=== PATIENT | male | born 1955 | race Caucasian/White ===

== ENCOUNTER 2016-06-23 20:55 | Inpatient (IN) | payer OTHER ==
[~2016-06-23] VITALS: Ht 188 cm; Wt 118.8 kg
[~2016-06-23 20:55] MED LIST: [UNRECOGNIZED DRUG - OTHER]
[2016-06-23 22:21] LABS: ADD SCAN DIFF NO
[2016-06-23 22:25] LABS: BASOPHIL # 0.1 10^3/ul (0.0-0.1); BASOPHILS % 0.4 % (0.0-2.0); EOSINOPHILS # 0.1 10^3/ul (0.0-0.5); EOSINOPHILS % 0.7 % (0.0-7.0); HEMATOCRIT 36.5 % (42.0-52.0); HEMOGLOBIN 11.4 g/dl (14.0-18.0); LYMPHOCYTES # 1.4 10^3/ul (0.8-2.9); LYMPHOCYTES % 10.1 % (15.0-51.0); MEAN CORPUSCULAR HEMOGLOBIN 26.8 pg (29.0-33.0); MEAN CORPUSCULAR HGB CONC 31.2 g/dl (32.0-37.0); MEAN CORPUSCULAR VOLUME 85.7 fl (82.0-101.0); MEAN PLATELET VOLUME 9.7 fl (7.4-10.4); MONOCYTE # 1.4 10^3/ul (0.3-0.9); MONOCYTES % 9.9 % (0.0-11.0); NEUTROPHIL # 10.6 10^3/ul (1.6-7.5); NEUTROPHILS % 78.3 % (39.0-77.0); NUCLEATED RED BLOOD CELLS # 0.1 10^3/ul (0.0-0.0); NUCLEATED RED BLOOD CELLS% 0.4 /100WBC (0.0-0.0); PLATELET COUNT 733 10^3/UL (140-415); RED BLOOD COUNT 4.26 10^6/ul (4.70-6.10); RED CELL DISTRIBUTION WIDTH 20.1 % (11.5-14.5); WHITE BLOOD COUNT 13.6 10^3/ul (4.8-10.8)
[2016-06-23 22:34] LABS: INR 1.01; PROTIME 13.3 Sec (12.2-14.2)
[2016-06-23 22:35] LABS: PARTIAL THROMBOPLASTIN TIME 29.1 Sec (25.0-35.0)
[2016-06-23 22:36] LABS: ALBUMIN 3.2 g/dl (3.3-4.9)
[2016-06-23 22:38] LABS: CREATININE 0.76 mg/dl (0.61-1.24)
[2016-06-23] MEDS ORDERED: TRAM-40 PO (22:38)
[2016-06-23 22:39] LABS: ALBUMIN/GLOBULIN RATIO 0.69; CALCIUM 8.6 mg/dl (8.4-10.2); TOTAL PROTEIN 7.8 g/dl (6.1-8.1)
[2016-06-23] MEDS ORDERED: TRIF1TAB PO (22:40)
--- NOTE | 2016-06-23 22:45 | RADRPT ---
PROCEDURE: XR Chest. CLINICAL INDICATION: Shortness of breath. TECHNIQUE: Portable AP semi erect view of the chest was obtained. COMPARISON: None. FINDINGS: The cardiomediastinal silhouette is within normal limits. Low lung volumes are noted with diffuse i nterstitial edema/infiltrates and scattered areas of pulmonary nodules unable to exclude diffuse met astatic disease, the largest in the right lower lobe region. There is no evidence of pleural effusi on or pneumothorax. A right-sided venous sinuses device is present the distal tip at the cavoatrial junction. The osseous structures are intact with no evidence for acute abnormality. RPTAT:HJJR IMPRESSION: 1. Findings concerning for scattered pulmonary nodules unable to exclude intrathoracic metastatic d isease in this patient with a right-sided venous axis device. 2. Low lung volumes may explain the diffuse interstitial appearance. Minimal interstitial edema is difficult to entirely exclude. Physician Mandy Date Time Electronically viewed and signed by Physician Mandy on 06/23/2016 22:45 /
[2016-06-24 01:30] VITALS: TEMP 99.2
[2016-06-24] MEDS ORDERED: ALBUTEROL 0.5% (NEB) 2.5 MG/0.5 ML AMP NEB STA (02:01)
[2016-06-24] MEDS ORDERED: IPRATROPIUM (NEB) 0.5 MG/2.5 ML AMP NEB STA (02:01)
--- NOTE | 2016-06-24 02:21 | ERA ---
ER Documentation Chief Complaint Date/Time DATE: 06/24/16 TIME: 02:08 Chief Complaint SOB, abdominal fluid HPI This is 61-year-old male with a history of extensive colon cancer with metastasis is complaining of months of shortness of breath. He states his been a gradual worsening of his breathing that is described as dyspnea on exertion some mild orthopnea. He is also having some lower extremity edema. He also states that his abdominal cavity is been gradually swelling over the past few months. Patient says that he is on chemo. Patient is also having some cough with some sputum that the patient is not looked at because he is swallowing it. Patient feels like his abdominal swelling is causing some of his difficulty breathing because is pushing on his diaphragm. He has grossly palpable tumors in the abdominal cavity. No nausea vomiting diarrhea no shortness of breath at rest ROS All systems reviewed and are negative except as per history of present illness. Medications Home Meds Reported Medications Trifluridine/Tipiracil HCl (Lonsurf 20 mg-8.19 mg Tablet) 1 Each Tablet, 1 EACH PO BID, TAB 06/23/16 Tramadol Hcl* (Ultram*) 50 Mg Tablet, 50 MG PO Q6H Y for PAIN, TAB 06/23/16 Discontinued Reported Medications [Fibercel] No Conflict Check 07/25/15 Allergies Allergies: Coded Allergies: No Known Allergy (Unverified , 06/23/16) PMhx/Soc History of Surgery: Yes (COLON RESECTION, SPLENECTOMY) Anesthesia Reaction: No Hx Neurological Disorder: No Hx Respiratory Disorders: No Hx Cardiac Disorders: No Hx Psychiatric Problems: No Hx Miscellaneous Medical Probl: No Hx Alcohol Use: No Hx Substance Use: No Hx Tobacco Use: No Smoking Status: Unknown if ever smoked FmHx Family History: No coronary disease Physical Exam Vitals Vital Signs Date Time Temp Pulse Resp B/P Pulse Ox O2 Delivery O2 Flow Rate FiO2 06/24/16 01:30 99.2 118 18 133/78 94 Room Air 06/23/16 23:14 24 97 Nasal Cannula 2.0 06/23/16 22:10 Nasal Cannula 2 06/23/16 21:08 100.6 123 24 120/84 97 Physical Exam Const: Well-developed, well-nourished Head: Atraumatic, normocephalic Eyes: Normal Conjunctiva, PERRLA, EOMI, normal sclera, no nystagmus ENT: Normal External Ears, Nose and Mouth, moist mucus membranes. Neck: Full range of motion. No meningismus, no lymphadenopathy. Resp: Mild increased work of breathing some slight rhonchi in the bases Cardio: Regular rate and rhythm, no murmurs, S1 S2 present Abd: Soft, distended abdomen nontender with palpable masses scattered throughout. Normal bowel sounds, no guarding or rebound, no pulsitile abdominal masses or bruits Skin: No petechiae or rashes, no ecchymosis , no maculopapular rash Back: No midline or flank tenderness Ext: No cyanosis, or edema, FROM x 4, normal inspection, neurovascularly intact x 4 Neur: Awake and alert, STR 5/5 x 4, sensation intact x 4, no focal findings, cerebellum intact Psych: Normal Mood and Affect Result Diagram: 06/23/16221606/23/162216 Results 24 hrs Laboratory Tests Test 06/23/16 22:17 Activated Partial Thromboplast Time 29.1Sec Alanine Aminotransferase (ALT/SGPT) 22IU/L Albumin 3.2g/dl Albumin/Globulin Ratio 0.69 Alkaline Phosphatase 185IU/L Anion Gap 16 Aspartate Amino Transf (AST/SGOT) 44IU/L B-Type Natriuretic Peptide 152PG/ML Basophils # 0.110^3/ul Basophils % 0.4% Blood Urea Nitrogen 16mg/dl Calcium Level 8.6mg/dl Carbon Dioxide Level 30mmol/L Chloride Level 100mmol/L Creatinine 0.76mg/dl Direct Bilirubin 0.00mg/dl Eosinophils # 0.110^3/ul Eosinophils % 0.7% Globulin 4.60g/dl Glucose Level 89mg/dl Hematocrit 36.5% Hemoglobin 11.4g/dl INR International Normalized Ratio 1.01 Indirect Bilirubin 0.0mg/dl Lymphocytes # 1.410^3/ul Lymphocytes % 10.1% Mean Corpuscular Hemoglobin 26.8pg Mean Corpuscular Hemoglobin Concent 31.2g/dl Mean Corpuscular Volume 85.7fl Mean Platelet Volume 9.7fl Monocytes # 1.410^3/ul Monocytes % 9.9% Neutrophils # 10.610^3/ul Neutrophils % 78.3% Nucleated Red Blood Cells # 0.110^3/ul Nucleated Red Blood Cells % 0.4/100WBC Platelet Count 54517^3/UL Potassium Level 4.0mmol/L Prothrombin Time 13.3Sec Prothrombin Time Ratio 1.0 Red Blood Count 4.2610^6/ul Red Cell Distribution Width 20.1% Sodium Level 142mmol/L Total Bilirubin 0.0mg/dl Total Protein 7.8g/dl White Blood Count 13.610^3/ul Current Medications Medications (Trade) Dose Ordered Sig/Lexy Route PRN Reason Start Time Stop Time Status Last Admin Dose Admin Albuterol (Proventil 0.5% (Neb)) 7.5 mg ONCE STAT NEB 06/24/16 02:01 06/24/16 02:02 DC Ipratropium Dixon 0.5 mg 0.5 mg ONCE STAT NEB 06/24/16 02:01 06/24/16 02:02 DC Sodium Chloride (NS) 500 ml @ 500 mls/hr Q1H ONCE IV 06/24/16 02:30 06/24/16 02:30 DC Procedures/MDM PROCEDURE: XR Chest. CLINICAL INDICATION: Shortness of breath. TECHNIQUE: Portable AP semi erect view of the chest was obtained. COMPARISON: None. FINDINGS: The cardiomediastinal silhouette is within normal limits. Low lung volumes are noted with diffuse interstitial edema/infiltrates and scattered areas of pulmonary nodules unable to exclude diffuse metastatic disease, the largest in the right lower lobe region. There is no evidence of pleural effusion or pneumothorax. A right-sided venous sinuses device is present the distal tip at the cavoatrial junction. The osseous structures are intact with no evidence for acute abnormality. RPTAT:HJJR IMPRESSION: 1. Findings concerning for scattered pulmonary nodules unable to exclude intrathoracic metastatic disease in this patient with a right-sided venous axis device. 2. Low lung volumes may explain the diffuse interstitial appearance. Minimal interstitial edema is difficult to entirely exclude. Physician Mandy Date Time Electronically viewed and signed by Physician Mandy on 06/23/2016 22:45 JR/ CC: FLOR FERRELL DO Patient has a low-grade temperature here but no evidence of pneumonia. Patient likely has bronchitis. His room air saturations are 9394%. He still has some mild increased work of breathing. I will admit him for pulmonary treatments. He also needs to get an ultrasound- guided paracentesis if there is any fluid that there are 2 possibly removed tomorrow. Spoke with Dr. Pendleton for admission Departure Diagnosis: Primary Impression: Hypoxia Additional Impression: Bronchitis Condition: Stable FLOR FERRELL DO Jun 24, 2016 02:18
[2016-06-24] MEDS ORDERED: ONDANSETRON 4 MG INJ IV PRN ×2 (02:30→06:30)
[2016-06-24] MEDS ORDERED: ACETAMINOPHEN 325 MG TAB PO PRN ×2 (02:30→06:30)
[2016-06-24] MEDS ORDERED: SOD CHLORIDE 0.9% 500 ML IV ONE (02:30)
[2016-06-24 04:08] VITALS: BP 135/82; RESP 18
[2016-06-24 04:23] VITALS: Ht 188 cm; Wt 118.8 kg
[2016-06-24] MEDS ORDERED: morphine 2 MG INJ IV PRN (06:30)
[2016-06-24 08:20] VITALS: BP 141/89; RESP 18
[2016-06-24] MEDS: PANTOPRAZOLE 40 MG INJ IV SCH (11:41)
--- NOTE | 2016-06-24 13:11 | QN ---
Documentation Comment [id number] LOIS COUGHLIN MD Jun 24, 2016 13:11
--- NOTE | 2016-06-24 13:19 | CONS ---
Date/Time of Note Date/Time of Note DATE: 06/24/16 TIME: 13:02 Assessment/Plan Assessment/Plan Chief Complaint/Hosp Course 61 yo male with metastatic colon cancer presenting with tense malignant ascites, shortness of breath and leukocytosis. Given that patient states his pain is better with lonsurf, we will resume this therapy as an outpatient. For now will order therapeutic paracentesis. -proceed with paracentesis -leukocytosis is likely secondary to ascites and peritoneal inflammation. Pt does not appear actively infected -patient wishes to go home after paracentesis. He can be discharged afterwards and followup in our oncology clinic Problems: Consultation Date/Type/Reason Admit Date/Time Jun 24, 2016 at 02:21 Date of Consultation: Jun 24, 2016 Type of Consultation: Oncology Reason for Consultation metastatic colon cancer Referring Provider: LOIS COUGHLIN Hx of Present Illness 61 y male with KRAS mutated metastatic colon cancer with bilateral pulmonary mets, abdominal masses and peritoneal carcinomatosis who has progressed through multiple lines of chemotherapy including folfox + Avastin, Regorafenib and is now on Lonsurf. Patient states his "cancer pain" in the abdomen has decreased but feels his abdomen has become more distended causing shortness of breath. He states he would like this fluid removed. He is currently cycle 2 day 8 of Lonsurf. Constitutional: diaphoresis, poor po Eyes: no complaints ENT: no complaints Respiratory: shortness of breath Cardiovascular: no complaints Gastrointestinal: decreased appetite Genitourinary: no complaints Musculoskeletal: bone/joint pain Skin: no complaints Neurologic: no complaints Past Medical History sleep apnea anemia metastatic colon cancer Family History Significant Family History: no pertinent family hx Social History Alcohol Use: sober Smoking Status: Never smoker Exam/Review of Systems Vital Signs Vitals Vital Signs Date Time Temp Pulse Resp B/P Pulse Ox O2 Delivery O2 Flow Rate FiO2 06/24/16 09:39 Nasal Cannula 06/24/16 08:20 98.1 91 18 141/89 96 06/24/16 02:46 21 06/23/16 23:14 2.0 Intake and Output 06/23/16 06/23/16 06/24/16 15:00 23:00 07:00 Output Total 350 ml Balance -350 ml Exam Constitutional: alert, oriented Psych: nl mood/affect, no complaints Head: normocephalic Eyes: nl conjunctiva ENMT: nl external ears & nose Neck: supple Respiratory: diminished breath sounds Cardiovascular: other (tachycardic) Gastrointestinal: distended, other (large mass felt in LUQ) Musculoskeletal: nl extremities to inspection Extremities: normal pulses Results Result Diagram: 06/23/16221606/23/162216 Results 24 hrs Laboratory Tests Test 06/23/16 22:17 Activated Partial Thromboplast Time 29.1 Alanine Aminotransferase (ALT/SGPT) 22 Albumin 3.2 L Albumin/Globulin Ratio 0.69 Alkaline Phosphatase 185 H Anion Gap 16 Aspartate Amino Transf (AST/SGOT) 44 B-Type Natriuretic Peptide 152 H Basophils # 0.1 Basophils % 0.4 Blood Urea Nitrogen 16 Calcium Level 8.6 Carbon Dioxide Level 30 Chloride Level 100 Creatinine 0.76 Direct Bilirubin 0.00 Eosinophils # 0.1 Eosinophils % 0.7 Globulin 4.60 H Glucose Level 89 Hematocrit 36.5 L Hemoglobin 11.4 L INR International Normalized Ratio 1.01 Indirect Bilirubin 0.0 Lymphocytes # 1.4 Lymphocytes % 10.1 L Mean Corpuscular Hemoglobin 26.8 L Mean Corpuscular Hemoglobin Concent 31.2 L Mean Corpuscular Volume 85.7 Mean Platelet Volume 9.7 Monocytes # 1.4 H Monocytes % 9.9 Neutrophils # 10.6 H Neutrophils % 78.3 H Nucleated Red Blood Cells # 0.1 H Nucleated Red Blood Cells % 0.4 H Platelet Count 733 H Potassium Level 4.0 Prothrombin Time 13.3 Prothrombin Time Ratio 1.0 Red Blood Count 4.26 L Red Cell Distribution Width 20.1 H Sodium Level 142 Total Bilirubin 0.0 L Total Protein 7.8 White Blood Count 13.6 H Medications Medications Current Medications Pantoprazole (Protonix Iv) 40 mg DAILY@06 IV Last administered on 06/24/16t 11: 41; Admin Dose 40 MG; Start 06/24/16 at 09:00 Acetaminophen (Tylenol Tab) 650 mg Q6H PRN PO PAIN AND OR ELEVATED TEMP; Start 06/24/16 at 06:30 Ondansetron HCl (Zofran Inj) 4 mg Q6H PRN IV NAUSEA AND/OR VOMITING; Start 06/24 at 06:30 Morphine Sulfate (morphine) 2 mg Q4H PRN IV PAIN LEVEL 7-10; Start 06/24/16 at 06:30 NITHYA ABDALLA M.D. Jun 24, 2016 13:13
--- NOTE | 2016-06-24 13:42 | HP ---
DATE OF ADMISSION: 06/24/2016 HISTORY OF PRESENT ILLNESS: The patient is a patient of Dr. Malave. The patient was sent here with a history of colonoscopy, polypectomy. The patient has history of extensive colon cancer with mets all over. Per patient, presented with short of breath, dyspnea on exertion, and lower extremity edema. The patient's case was discussed with Dr. Malave, and Dr. Malave suggested patient has a symptomatic ascites and will need paracentesis. After that, he will follow with Dr. Malave. His leukocytosis, probably is due to cancer. Patient is denying any chest pain, palpitation, fever, chills at this point. PAST MEDICAL HISTORY: As mentioned above, the patient has history of colon cancer, status post surgery and patient has a history of colon cancer with mets. ALLERGY HISTORY: NEGATIVE. FAMILY HISTORY: Denies. SOCIAL HISTORY: Denies. MEDICATION: 1. Tramadol. 2. Trifluridine 3. mg per Dr. Malave. REVIEW OF SYSTEMS HEENT: Unremarkable. RESPIRATORY: Unremarkable except on and off short of breath. CARDIOVASCULAR: S1, S2 normal. ABDOMEN: Increasing abdominal size. EXTREMITIES: Unremarkable except on and off swelling. CENTRAL NERVOUS SYSTEM: Unremarkable at this point. PHYSICAL EXAMINATION: GENERAL: The patient is awake, alert. Mild shortness of breath. VITAL SIGNS: Pulse 91, blood pressure 141/89. HEAD: Atraumatic, normocephalic. Pupils equal, reactive to light. NECK: Supple. No JVD. LUNGS: Clear anteriorly and posteriorly. CARDIOVASCULAR: S1, S2 normal. ABDOMEN: Distended. Bowel sounds positive. Ascites appreciated. The patient has extensive colon cancer noted with distention of the abdomen. EXTREMITIES: No cyanosis, clubbing. Edema positive trace to 1+. CENTRAL NERVOUS SYSTEM: The patient is awake, alert, moving both upper and lower extremities. LABORATORY DATA: WBC 13.6, hematocrit 36.5, platelet count 733. Sodium 140, potassium 4, alkaline phosphatase 185. BNP 152. IMAGING: Patient had a chest x-ray that shows scattered pulmonary nodule. IMPRESSION: 1. The patient has symptomatic ascites. 2. The patient has metastatic colon cancer. 3. Leukocytosis, systemic inflammatory response syndrome versus cancer. PLAN: To do paracentesis and send fluid for culture, sensitivity, cell count, LDH and protein. The patient will be monitored. Case was discussed with Dr. Malave. Dictated By: LOIS COUGHLIN MD BS/NTS Conf#: [id number] DID#: [id number]
[2016-06-24] MEDS ORDERED: LIDOCAINE 1% (MPF) 5 ML VIAL ONE (14:09)
--- NOTE | 2016-06-24 14:20 | RADRPT ---
PROCEDURE: Ultrasound guided paracentesis. CLINICAL INDICATION: Ascites and shortness of breath. COMPARISON: No prior studies are available for comparison. TECHNIQUE: The risks, benefits, and alternatives were explained to the patient and/or the patient's family, inc luding but not limited to bleeding, infection, pain, visceral or vascular damage, shock, and . The patient and/or the patient's family understood the risks and the alternatives and wished to pro ceed with the procedure. Informed written consent was obtained. A procedural time out was performed . The patient's name, date of , and procedure to be performed were verified. Utilizing ultrasound guidance, optimal location for entry to the peritoneal cavity was ascertained. The overlying skin was prepped and draped in the usual sterile fashion. Approximately 10 ml of 1% Xylocaine was injected locally for pain control. Using ultrasound guidance, an 8 Stateless catheter wa s introduced into the peritoneal cavity in the right lower quadrant without difficulty. FINDINGS: Initial images demonstrate ascites. Approximately 0.200 liters of serous fluid was aspirated and di scarded. The patient tolerated the procedure well without complication. IMPRESSION: 1. Successful ultrasound-guided paracentesis. RPTAT: QQ .Jimmie Phan MD, Date Time Electronically viewed and signed by .Jimmie Phan MD, on 06/24/2016 14:20 .R/
[2016-06-24 14:45] VITALS: BP 145/89; PULSE 91; RESP 20
[2016-06-24 19:49] VITALS: BP 129/81; RESP 20
[2016-06-25] MEDS: ALBUTEROL 0.5% (NEB) 2.5 MG/0.5 ML AMP HHN PRN ×2 (01:03→08:05)
[2016-06-25] MEDS: IPRATROPIUM (NEB) 0.5 MG/2.5 ML AMP HHN PRN ×2 (01:03→08:06)
[2016-06-25 05:40] LABS: ADD SCAN DIFF NO
[2016-06-25 05:52] LABS: BASOPHILS % 0.3 % (0.0-2.0); EOSINOPHILS # 0.1 10^3/ul (0.0-0.5); EOSINOPHILS % 0.5 % (0.0-7.0); HEMATOCRIT 33.6 % (42.0-52.0); HEMOGLOBIN 10.6 g/dl (14.0-18.0); LYMPHOCYTES # 1.4 10^3/ul (0.8-2.9); LYMPHOCYTES % 10.5 % (15.0-51.0); MEAN CORPUSCULAR HEMOGLOBIN 26.8 pg (29.0-33.0); MEAN CORPUSCULAR HGB CONC 31.5 g/dl (32.0-37.0); MEAN CORPUSCULAR VOLUME 84.8 fl (82.0-101.0); MEAN PLATELET VOLUME 9.7 fl (7.4-10.4); MONOCYTE # 1.2 10^3/ul (0.3-0.9); MONOCYTES % 8.8 % (0.0-11.0); NEUTROPHIL # 10.3 10^3/ul (1.6-7.5); NEUTROPHILS % 79.4 % (39.0-77.0); NUCLEATED RED BLOOD CELLS% 0.2 /100WBC (0.0-0.0); PLATELET COUNT 614 10^3/UL (140-415); RED BLOOD COUNT 3.96 10^6/ul (4.70-6.10); RED CELL DISTRIBUTION WIDTH 19.5 % (11.5-14.5)
[2016-06-25] MEDS: PANTOPRAZOLE 40 MG INJ IV SCH (06:00)
[2016-06-25 07:35] VITALS: BP 137/90; RESP 18
--- NOTE | 2016-06-25 11:04 | CONS ---
Date/Time of Note Date/Time of Note DATE: 06/25/16 TIME: 10:56 Assessment/Plan Assessment/Plan Chief Complaint/Hosp Course 61 yo male with metastatic colon cancer presenting with tense malignant ascites, shortness of breath and leukocytosis. Given that patient states his pain is better with lonsurf, we will resume this therapy as an outpatient. Pt is now s/ p paracentesis but with minimal relief because most of the abdominal distention is from disease. Pt understands that his disease is terminal. He does not want to pursue hospice at this point bc he feels the lonsurf is helping his cancer pain. As stated before, leukocytosis is likely secondary to ascites and peritoneal inflammation. Pt As does not appear actively infected -ok for discharge from a hematologic standpoint -will f/u as an out patient. Pt is on his last line of chemotherapy and will likely need hospice eval soon Approximately 40 min were spent at patient's bedside and in coordination of his care Problems: Consultation Date/Type/Reason Admit Date/Time Jun 24, 2016 at 02:21 Initial Consult Date 06/24/16 Type of Consultation: Oncology Reason for Consultation metastatic colon cancer Referring Provider: LOIS COUGHLIN MD 24 HR Interval Summary Free Text/Dictation pt had paracentesis done yesterday but only 200cc of fluid could be removed. appears that the distended abdomen is secondary to tumor. still with sob Exam/Review of Systems Vital Signs Vitals Vital Signs Date Time Temp Pulse Resp B/P Pulse Ox O2 Delivery O2 Flow Rate FiO2 06/25/16 10:00 Nasal Cannula 06/25/16 08:07 88 16 93 3.0 06/25/16 07:35 98.7 137/90 06/25/16 01:06 21 Intake and Output 06/24/16 06/24/16 06/25/16 15:00 23:00 07:00 Intake Total 840 ml 550 ml Output Total 600 ml 650 ml Balance 240 ml -100 ml Exam Constitutional: alert, oriented Psych: no complaints Head: atraumatic, normocephalic Eyes: nl conjunctiva ENMT: nl external ears & nose Neck: non-tender, supple Respiratory: clear to auscultation, normal air movement Cardiovascular: regular rate and rhythm Gastrointestinal: distended, mass, other Musculoskeletal: nl extremities to inspection Extremities: normal pulses Results Result Diagram: 06/25/16 0425 06/23/16 2217 Results 24 hrs Laboratory Tests Test 06/25/16 04:25 Basophils # 0.0 Basophils % 0.3 Eosinophils # 0.1 Eosinophils % 0.5 Hematocrit 33.6 L Hemoglobin 10.6 L Lymphocytes # 1.4 Lymphocytes % 10.5 L Mean Corpuscular Hemoglobin 26.8 L Mean Corpuscular Hemoglobin Concent 31.5 L Mean Corpuscular Volume 84.8 Mean Platelet Volume 9.7 Monocytes # 1.2 H Monocytes % 8.8 Neutrophils # 10.3 H Neutrophils % 79.4 H Nucleated Red Blood Cells # 0.0 Nucleated Red Blood Cells % 0.2 H Platelet Count 614 H Red Blood Count 3.96 L Red Cell Distribution Width 19.5 H White Blood Count 13.0 H Medications Medications Current Medications Pantoprazole (Protonix Iv) 40 mg DAILY@06 IV Last administered on 06/24/16t 11: 41; Admin Dose 40 MG; Start 06/24/16 at 09:00 Acetaminophen (Tylenol Tab) 650 mg Q6H PRN PO PAIN AND OR ELEVATED TEMP; Start 06/24/16 at 06:30 Ondansetron HCl (Zofran Inj) 4 mg Q6H PRN IV NAUSEA AND/OR VOMITING; Start 06/24 at 06:30 Morphine Sulfate (morphine) 2 mg Q4H PRN IV PAIN LEVEL 7-10; Start 06/24/16 at 06:30 NITHYA ABDALLA M.D. Jun 25, 2016 11:04
--- NOTE | 2016-06-25 12:49 | PDOCDIS ---
Discharge Instructions CONDITION Patient Condition: Stable ACTIVITY: Activity Restrictions: Slowly Increase Activity FOLLOW UP/APPOINTMENTS Appointments F/U OWN PCP [address] ABDALLA 1 WK LOIS COUGHLIN MD Jun 25, 2016 12:49
[2016-06-25] MEDS ORDERED: ALBU8.5H3 INH (12:51)
== END 2016-06-25 13:55 | disposition home or self-care (01) | DRG 948 ==
LOC: E/R 20:55 → MS1 06-24 02:21
PROVIDERS: ADMIT Internal Medicine Nephrology; ATTEND Internal Medicine Nephrology
PROC: 0W9G3ZZ Drainage of Peritoneal Cavity, Percutaneous Approach (ICD-10-PCS; principal; 2016-06-24)
DX: R18.8 Other ascites (principal); C78.5 Secondary malignant neoplasm of large intestine and rectum; J40 Bronchitis, not specified as acute or chronic; D72.829 Elevated white blood cell count, unspecified
CPT/HCPCS: 36415; 71010; 80053; 83880; 85025; 85610; 85730; 93005; 94640; 94664; C9113

== ENCOUNTER 2016-09-14 09:35 | Emergency (ER) | payer OTHER ==
[~2016-09-14] VITALS: Ht 185.4 cm; Wt 95.0 kg
[~2016-09-14 09:35] MED LIST changes: +ALBU8.5H3 INH; +TRAM-40 PO; +TRIF1TAB PO; -[UNRECOGNIZED DRUG - OTHER]
[2016-09-14 10:01] VITALS: Ht 185.4 cm; Wt 95.0 kg
[2016-09-14] MEDS ORDERED: DIAZEPAM 5 MG/ML SYG IM ONE (10:30)
[2016-09-14] MEDS ORDERED: morphine 10 MG INJ IM ONE (10:30)
--- NOTE | 2016-09-14 11:14 | RADRPT ---
PROCEDURE: XR Cervical Spine, 4 views. CLINICAL INDICATION: pain TECHNIQUE: AP, lateral and odontoid views of the cervical spine were performed. The images were re viewed on a PACS workstation. COMPARISON: None. FINDINGS: There is decreased osseous mineralization. There is reversal of cervical lordosis with the apex at C4. There is significant degenerative disk disease throughout the cervical spine with prominent disk spa ce narrowing and possibly effusion from C2-3 through C4-5. There is prominent facet joint disease at C2-3 a with sclerosis noted. There is moderate cervical spine spondylosis. The prevertebral soft tissues are normal. No radiopaque foreign bodies are identified. There is no acute fracture or subluxation. RPTAT: AA IMPRESSION: Moderate cervical spine spondylosis as well as reversal of cervical lordosis, as above. Severe multilevel degenerative disk disease in the cervical spine and possibly fusion of vertebral b odies from C2-3 through C4-5. Decreased osseous mineralization. Physician Anastasia Date Time Electronically viewed and signed by Physician Anastasia on 09/14/2016 11:14 /
--- NOTE | 2016-09-14 11:17 | RADRPT ---
PROCEDURE: XR Lumbar Spine. CLINICAL INDICATION: back pain TECHNIQUE: AP, lateral and cone-down lateral view of the lumbar spine were obtained. COMPARISON: No prior studies are available for comparison. FINDINGS: There is decreased osseous mineralization. There is straightening of lumbar lordosis. There is mild loss of height anteriorly at the superior endplate of T12, possibly due to an age - in determinate compression fracture. There is loss of height at the superior endplate of L1 as well as endplate sclerosis which may be du e to an age - indeterminate compression fracture. Loss of height and endplate sclerosis at the superior endplate of L5 may be due to an age - indeterm inate compression fracture versus Schmorl's node. There is mild multilevel degenerative disk disease in the lumbar spine including disk space narrowin g in the upper to mid lumbar spine The posterior elements are unremarkable. The soft tissues appear normal. RPTAT: AA IMPRESSION: Possible age - indeterminate compression fractures of T12, L1, and L5, as above. Correlation with p hysical exam for tenderness to palpation is recommended to evaluate for acuity. Decreased osseous mineralization. Straightening of lumbar lordosis. Mild multilevel degenerative disk disease in the upper to mid lumbar spine. Physician Anastasia Date Time Electronically viewed and signed by Physician Anastasia on 09/14/2016 11:17 /
[2016-09-14] MEDS ORDERED: HYDR-902 PO (11:23)
--- NOTE | 2016-09-14 11:26 | ERD ---
ER Documentation Chief Complaint Date/Time DATE: 09/14/16 TIME: 11:26 Chief Complaint back pain, shoulder pain, on chemo HPI Is a 61-year-old male comes in with the back and shoulder pain along with lower back pain on and off. He said his muscle spasm started last weekend. No fevers no chills. No nausea no vomiting. No trauma. Patient does have history of stage IV cancer. Pain is mild to moderate in intensity. No focal neurological complaints. ROS All systems reviewed and are negative except as per history of present illness. Medications Home Meds Active Scripts Hydrocodone/Acetaminophen ([place] 10-325 Tablet) 1 Each Tablet, 1 TAB PO Q6H Y for PAIN, #20 TAB Prov:OLGA FREGOSO 09/14/16 Albuterol Sulfate* (Proair HFA*) 8.5 Gm Hfa.aer.ad, 2 PUFF INH Q4, #1 INHALER Prov:LOIS COUGHLIN MD 06/25/16 Reported Medications Trifluridine/Tipiracil HCl ([place] 20 mg-8.19 mg Tablet) 1 Each Tablet, 1 EACH PO BID, TAB 06/23/16 Tramadol Hcl* (Ultram*) 50 Mg Tablet, 50 MG PO Q6H Y for PAIN, TAB 06/23/16 Allergies Allergies: Coded Allergies: No Known Allergy (Unverified , 06/23/16) PMhx/Soc History of Surgery: Yes (COLON RESECTION, HERNIA SX) Anesthesia Reaction: No Hx Neurological Disorder: Yes Hx Respiratory Disorders: Yes (SOB) Hx Cardiac Disorders: No Hx Psychiatric Problems: No Hx Miscellaneous Medical Probl: No Hx Alcohol Use: No Hx Substance Use: Yes (MARIJUANA USE - CURRENTLY) Hx Tobacco Use: No Smoking Status: Current every day smoker Physical Exam Vitals Vital Signs Date Time Temp Pulse Resp B/P Pulse Ox O2 Delivery O2 Flow Rate FiO2 09/14/16 10:01 97.7 85 20 125/75 99 Physical Exam Const: [] Head: Atraumatic Eyes: Normal Conjunctiva ENT: Normal External Ears, Nose and Mouth. Neck: Full range of motion..~ No meningismus. Resp: Clear to auscultation bilaterally Cardio: Regular rate and rhythm, no murmurs Abd: Soft, non tender, non distended. Normal bowel sounds Skin: No petechiae or rashes Back: No midline or flank tenderness Ext: No cyanosis, or edema Neur: Awake and alert Psych: Normal Mood and Affect Results 24 hrs Current Medications Medications (Trade) Dose Ordered Sig/Lexy Route PRN Reason Start Time Stop Time Status Last Admin Dose Admin Morphine Sulfate (morphine) 4 mg ONCE ONCE IM 09/14/16 10:30 09/14/16 10:31 DC 09/14/16 10:18 Diazepam (Valium) 5 mg ONCE ONCE IM 09/14/16 10:30 09/14/16 10:31 DC 09/14/16 10:21 Procedures/MDM X-ray C spine 3V Interpreted by me: Bones: [No fracture] Joints: [No dislocation] Foreign body: [None] X-ray LS-Spine 3V Interpreted by me: Bones: [No fracture] Joints: [No dislocation] Foreign body: [None] Medical decision-makin-year-old male with acute on chronic back pain. At this point clinically stable. No evidence of lytic lesions. Patient will be discharged home. Departure Diagnosis: Primary Impression: Back pain Back pain location: back pain in unspecified location Chronicity: acute Back pain laterality: midline Qualified Code: M54.9 - Acute midline back pain , unspecified back location Condition: Stable Patient Instructions: Back Pain (Acute Or Chronic) OLGA FREGOSO September 14, 2016 11:26
[2016-09-14 12:13] VITALS: BP 137/90; PULSE 81; RESP 20
[2016-09-14] MEDS ORDERED: KETOROLAC 60 MG INJ IM STA (12:19)
== END 2016-09-14 12:52 | disposition home or self-care (01) ==
LOC: E/R 09:35
DX: M54.9 Dorsalgia, unspecified (principal); R40.2142 Coma scale, eyes open, spontaneous, at arrival to emergency department; R40.2252 Coma scale, best verbal response, oriented, at arrival to emergency department; R40.2362 Coma scale, best motor response, obeys commands, at arrival to emergency department; F17.210 Nicotine dependence, cigarettes, uncomplicated
CPT/HCPCS: 72040; 72100; 96372; J1885; J2270; J3360; Z7502; Z7610

== ENCOUNTER 2016-10-06 10:14 | Emergency (ER) | payer OTHER ==
[~2016-10-06] VITALS: Ht 188 cm; Wt 108.0 kg
[~2016-10-06 10:14] MED LIST changes: -ALBU8.5H3 INH; +HYDR-902 PO; -TRAM-40 PO
[2016-10-06 10:27] VITALS: Ht 188 cm; Wt 108.0 kg
--- NOTE | 2016-10-06 14:06 | ERD ---
ER Documentation Chief Complaint Date/Time DATE: 10/06/16 TIME: 14:06 Chief Complaint here for a paracentesis HPI 61-year-old man with a history of stage IV metastatic colon cancer here for paracentesis. He has a recent history of recurrent ascites and is requesting paracentesis, he states he has an appointment with his heme oncologist and will follow up tomorrow. He denies blood per rectum or melena, no fevers or chills, no chest pain or shortness of breath. Patient has not undergone surgical debulking. He had similar symptomatology a couple of weeks ago and received paracentesis and felt better. ROS All systems reviewed and are negative except as per history of present illness. Medications Home Meds Active Scripts Hydrocodone/Acetaminophen ([place] 10-325 Tablet) 1 Each Tablet, 1 TAB PO Q6H Y for PAIN, #20 TAB Prov:OLGA FREGOSO 09/14/16 Discontinued Reported Medications Trifluridine/Tipiracil HCl ([place] 20 mg-8.19 mg Tablet) 1 Each Tablet, 1 EACH PO BID, TAB 06/23/16 Allergies Allergies: Coded Allergies: No Known Allergy (Unverified , 10/06/16) PMhx/Soc COPD, metastatic stage IV colon cancer, recurrent ascites History of Surgery: Yes (COLON RESECTION, HERNIA SX) Anesthesia Reaction: No Hx Neurological Disorder: Yes Hx Respiratory Disorders: Yes (SOB) Hx Cardiac Disorders: No Hx Psychiatric Problems: No Hx Miscellaneous Medical Probl: Yes (Colon CA with Mets ) Hx Alcohol Use: No Hx Substance Use: Yes (MARIJUANA USE - CURRENTLY) Hx Tobacco Use: No Smoking Status: Never smoker FmHx Family History: No diabetes Physical Exam Vitals Vital Signs Date Time Temp Pulse Resp B/P Pulse Ox O2 Delivery O2 Flow Rate FiO2 10/06/16 10:27 99.3 89 18 106/63 98 Physical Exam GENERAL: Well-developed, well-nourished, well-hydrated, in no apparent distress , looks nontoxic in appearance HEENT: Moist mucous membranes, pink conjunctiva, no cervical spine tenderness or step-off deformities, no goiter, no jaundice or icterus, extraocular movements intact without pain. No submandibular induration, and no pharyngeal erythema NEURO: Alert and oriented 3, cranial nerves II through XII intact bilaterally, pupils equal round reactive to light, no focal deficits or facial asymmetry, sensation intact distally Strength 5/5 in upper and lower extremities bilaterally CARDIAC: Regular rate and rhythm, no murmurs rubs or gallops LUNGS: Clear bilaterally no wheezing crackles or stridor ABDOMEN: Protuberant distended abdomen with a very large minimally tender mass taking up most of the left side of the abdomen consistent with colon cancer, no rigidity, evidence of ascites SKIN: Warm and dry to touch, no abrasions, contusions, or hematomas, no lacerations, no ecchymosis, no target lesions, and without ulcers EXTREMITIES: No clubbing cyanosis or edema, calves are bilaterally symmetrical, no Homans sign, no popliteal cord sign. Distal pulses equal and bilateral PSYCH: Normal affect without agitation or irritability Result Diagram: 10/06/16 1500 10/06/16 1500 Results 24 hrs Laboratory Tests Test 10/06/16 15:00 White Blood Count 8.410^3/ul Red Blood Count 3.1710^6/ul Hemoglobin 9.4g/dl Hematocrit 30.3% Mean Corpuscular Volume 95.6fl Mean Corpuscular Hemoglobin 29.7pg Mean Corpuscular Hemoglobin Concent 31.0g/dl Red Cell Distribution Width 20.8% Platelet Count 71662^3/UL Mean Platelet Volume 9.4fl Neutrophils % 79.0% Band Neutrophils % 2.0% Lymphocytes % 6.0% Monocytes % 12.0% Eosinophils % 1.0% Neutrophils # 6.610^3/ul Lymphocytes # 0.510^3/ul Monocytes # 1.010^3/ul Eosinophils # 0.110^3/ul Platelet Estimate PLT APPEAR INCREASED Macrocytosis OCCASIONAL Prothrombin Time 14.4Sec Prothrombin Time Ratio 1.1 INR International Normalized Ratio 1.12 Sodium Level 138mmol/L Potassium Level 3.8mmol/L Chloride Level 100mmol/L Carbon Dioxide Level 33mmol/L Anion Gap 9 Blood Urea Nitrogen 15mg/dl Creatinine 0.59mg/dl Glucose Level 96mg/dl Calcium Level 9.0mg/dl Current Medications Medications (Trade) Dose Ordered Sig/Lexy Route PRN Reason Start Time Stop Time Status Last Admin Dose Admin Lidocaine (Xylocaine 1% (Mpf)) 5 ml STK-MED ONCE .ROUTE 10/06/16 17:48 10/06/16 17:49 DC Procedures/MDM CBC revealed anemia with a hemoglobin of 9.4, electrolytes revealed dehydration with a BUN/creatinine of 15/0.6. INR was normal. Ultrasound-guided paracentesis was performed removing about 3 L of fluid. Patient feels much better. Differential diagnoses considered, included but not limited to acute coronary syndrome, pulmonary embolism, aortic dissection, abdominal aortic aneurysm, sepsis, stroke, meningitis, encephalitis, pneumonia, appendicitis, cholecystitis , bowel obstruction, pyelonephritis, nephrolithiasis, cystitis, as well as metabolic, hematologic, and electrolyte abnormalities. As well as abscess, cellulitis, fractures, and dislocations. Patient feels much better at this time, and vital signs are normal, symptoms have improved. I did give strict instructions to return to the ED if symptoms continue or worsen, patient will otherwise follow-up with primary care physician. Patient understood instructions and agreed to plan. Disclaimer: Inadvertent spelling or grammatical errors are likely due to EHR/ dictation software use and do not reflect on the overall quality of patient care. Departure Diagnosis: Primary Impression: Ascites Ascites type: other type Qualified Code: R18.8 - Other ascites Additional Impressions: Anemia Anemia type: unspecified type Qualified Code: D64.9 - Anemia, unspecified type Colon cancer Colon location: unspecified part of colon Qualified Code: C18.9 - Malignant neoplasm of colon, unspecified part of colon Condition: BECKY Barros MD Oct 06, 2016 14:06
[2016-10-06 15:16] LABS: ADD SCAN DIFF NO
[2016-10-06 15:18] LABS: HEMATOCRIT 30.3 % (42.0-52.0); HEMOGLOBIN 9.4 g/dl (14.0-18.0); MEAN CORPUSCULAR HEMOGLOBIN 29.7 pg (29.0-33.0); MEAN CORPUSCULAR VOLUME 95.6 fl (82.0-101.0); MEAN PLATELET VOLUME 9.4 fl (7.4-10.4); PLATELET COUNT 801 10^3/UL (140-415); RED BLOOD COUNT 3.17 10^6/ul (4.70-6.10); RED CELL DISTRIBUTION WIDTH 20.8 % (11.5-14.5); WHITE BLOOD COUNT 8.4 10^3/ul (4.8-10.8)
[2016-10-06 15:40] LABS: INR 1.12; PROTIME 14.4 Sec (12.2-14.2); PT RATIO 1.1
[2016-10-06 15:41] LABS: CREATININE 0.59 mg/dl (0.61-1.24); POTASSIUM 3.8 mmol/L (3.5-5.1)
[2016-10-06 16:22] LABS: EOSINOPHILS # 0.1 10^3/ul (0.0-0.5); LYMPHOCYTES # 0.5 10^3/ul (0.8-2.9); NEUTROPHIL # 6.6 10^3/ul (1.6-7.5)
[2016-10-06 16:24] LABS: PLATELET ESTIMATE PLT APPEAR INCREASED
[2016-10-06] MEDS ORDERED: LIDOCAINE 1% (MPF) 5 ML VIAL ONE (17:48)
--- NOTE | 2016-10-06 17:51 | RADRPT ---
PROCEDURE: Ultrasound guided paracentesis. CLINICAL INDICATION: Ascites and shortness of breath. COMPARISON: 09/23/2016 TECHNIQUE: The risks, benefits, and alternatives were explained to the patient and/or the patient's family, inc luding but not limited to bleeding, infection, pain, visceral or vascular damage, shock, and . The patient and/or the patient's family understood the risks and the alternatives and wished to pro ceed with the procedure. Informed written consent was obtained. A procedural time out was performed . The patient's name, date of , and procedure to be performed were verified. Utilizing ultrasound guidance, optimal location for entry to the peritoneal cavity was ascertained. The overlying skin was prepped and draped in the usual sterile fashion. Approximately 10 ml of 1% Xylocaine was injected locally for pain control. Using ultrasound guidance, an 8 English catheter wa s introduced into the peritoneal cavity in the right lower quadrant without difficulty. FINDINGS: Initial images demonstrate ascites. Approximately 3.0 liters of serous fluid was aspirated and disc arded. The patient tolerated the procedure well without complication. IMPRESSION: 1. Successful ultrasound-guided paracentesis. RPTAT: QQ .Jimmie Phan MD, Date Time Electronically viewed and signed by .Jimmie Phan MD, on 10/06/2016 17:50 .R/
[2016-10-06 21:40] VITALS: BP 124/64; PULSE 89; RESP 18
== END 2016-10-06 21:40 | disposition home or self-care (01) ==
LOC: E/R 10:14
DX: R18.8 Other ascites (principal); D64.9 Anemia, unspecified; C18.9 Malignant neoplasm of colon, unspecified; J44.9 Chronic obstructive pulmonary disease, unspecified
CPT/HCPCS: 80048; 85025; 85610

== ENCOUNTER 2016-10-30 08:53 | Emergency (ER) | payer OTHER ==
[~2016-10-30] VITALS: Wt 110.0 kg
[~2016-10-30 08:53] MED LIST changes: -TRIF1TAB PO
[2016-10-30 10:04] LABS: ADD SCAN DIFF NO
[2016-10-30 10:06] LABS: BASOPHILS % 0.1 % (0.0-2.0); EOSINOPHILS # 0.1 10^3/ul (0.0-0.5); EOSINOPHILS % 0.5 % (0.0-7.0); HEMATOCRIT 34.1 % (42.0-52.0); HEMOGLOBIN 10.3 g/dl (14.0-18.0); LYMPHOCYTES # 0.6 10^3/ul (0.8-2.9); LYMPHOCYTES % 4.1 % (15.0-51.0); MEAN CORPUSCULAR HEMOGLOBIN 28.5 pg (29.0-33.0); MEAN CORPUSCULAR HGB CONC 30.2 g/dl (32.0-37.0); MEAN CORPUSCULAR VOLUME 94.2 fl (82.0-101.0); MEAN PLATELET VOLUME 9.1 fl (7.4-10.4); MONOCYTE # 1.4 10^3/ul (0.3-0.9); MONOCYTES % 9.1 % (0.0-11.0); NEUTROPHIL # 12.7 10^3/ul (1.6-7.5); NEUTROPHILS % 85.6 % (39.0-77.0); PLATELET COUNT 806 10^3/UL (140-415); RED BLOOD COUNT 3.62 10^6/ul (4.70-6.10); RED CELL DISTRIBUTION WIDTH 18.8 % (11.5-14.5); WHITE BLOOD COUNT 14.9 10^3/ul (4.8-10.8)
[2016-10-30 10:18] LABS: PLATELET ESTIMATE PLT APPEAR INCREASED
[2016-10-30 10:21] LABS: INR 1.07; PROTIME 13.9 Sec (12.2-14.2); PT RATIO 1.1
[2016-10-30 10:22] LABS: PARTIAL THROMBOPLASTIN TIME 37.9 Sec (25.0-35.0)
[2016-10-30 10:25] LABS: ALBUMIN 3.3 g/dl (3.3-4.9); ALBUMIN/GLOBULIN RATIO 0.73; CALCIUM 9.2 mg/dl (8.4-10.2); CREATININE 0.57 mg/dl (0.61-1.24); POTASSIUM 3.8 mmol/L (3.5-5.1); TOTAL PROTEIN 7.8 g/dl (6.1-8.1)
[2016-10-30] MEDS ORDERED: HYDROmorphONE 1 MG/ML SYG IV STA (10:52)
[2016-10-30] MEDS ORDERED: LIDOCAINE 1% (MPF) 5 ML VIAL ONE (12:40)
--- NOTE | 2016-10-30 12:46 | RADRPT ---
PROCEDURE: Ultrasound guided paracentesis. CLINICAL INDICATION: Ascites and shortness of breath. COMPARISON: 10/06/2016. TECHNIQUE: The risks, benefits, and alternatives were explained to the patient and/or the patient's family, inc luding but not limited to bleeding, infection, pain, visceral or vascular damage, shock, and . The patient and/or the patient's family understood the risks and the alternatives and wished to pro ceed with the procedure. Informed written consent was obtained. A procedural time out was performed . The patient's name, date of , and procedure to be performed were verified. Utilizing ultrasound guidance, optimal location for entry to the peritoneal cavity was ascertained. The overlying skin was prepped and draped in the usual sterile fashion. Approximately 10 ml of 1% Xylocaine was injected locally for pain control. Using ultrasound guidance, an 8 [place] catheter wa s introduced into the peritoneal cavity in the right lower quadrant without difficulty. FINDINGS: Initial images demonstrate ascites. Approximately 4.7 liters of serous fluid was aspirated and disc arded. The patient tolerated the procedure well without complication. IMPRESSION: 1. Successful ultrasound-guided paracentesis. RPTAT: QQ .Jimmie Phan MD, Date Time Electronically viewed and signed by .Jimmie Phan MD, on 10/30/2016 12:45 .R/
[2016-10-30 13:12] VITALS: BP 122/86; PULSE 91; RESP 18
--- NOTE | 2016-10-30 13:51 | ERD ---
ER Documentation Chief Complaint Date/Time DATE: 10/30/16 TIME: 13:46 Chief Complaint PARACENTISIS UNABLE TO BE DONE OUTPT B/C OF LAB RESULTS HPI 61-year-old male with a history of recurrent colon cancer status post chemotherapy presenting with ascites, requesting a paracentesis. He was scheduled for a paracentesis yesterday, however his labs were abnormal and they refused to do the procedure. The patient complains of shortness of breath related to his ascites. He has pressure in his abdomen but no significant pain that is out of the ordinary. He denies any fevers, chills, nausea, vomiting, diarrhea. His cancer is not treatable at this time and he is arranging for hospice outpatient. ROS All systems reviewed and are negative except as per history of present illness. Medications Home Meds Active Scripts Hydrocodone/Acetaminophen ([place] 10-325 Tablet) 1 Each Tablet, 1 TAB PO Q6H Y for PAIN, #20 TAB Prov:TARYNALLISON QUINONEZEL Travis 09/14/16 Allergies Allergies: Coded Allergies: No Known Allergy (Unverified , 10/06/16) PMhx/Soc History of Surgery: Yes (COLON RESECTION, HERNIA SX, Splenectomy) Anesthesia Reaction: No Hx Neurological Disorder: Yes Hx Respiratory Disorders: Yes (SOB) Hx Cardiac Disorders: No Hx Psychiatric Problems: No Hx Miscellaneous Medical Probl: Yes (Colon CA with Mets ) Hx Alcohol Use: No Hx Substance Use: Yes (MARIJUANA USE - CURRENTLY) Hx Tobacco Use: No Smoking Status: Never smoker FmHx Family History: No diabetes Physical Exam Vitals Vital Signs Date Time Temp Pulse Resp B/P Pulse Ox O2 Delivery O2 Flow Rate FiO2 10/30/16 13:12 91 18 122/86 95 Room Air 10/30/16 09:03 99.5 103 18 120/68 99 Physical Exam Const: [] Head: Atraumatic Eyes: Normal Conjunctiva ENT: Normal External Ears, Nose and Mouth. Neck: Full range of motion..~ No meningismus. Resp: Clear to auscultation bilaterally Cardio: Regular rate and rhythm, no murmurs Abd: Soft, non tender, non distended. Normal bowel sounds Skin: No petechiae or rashes Back: No midline or flank tenderness Ext: No cyanosis, or edema Neur: Awake and alert Psych: Normal Mood and Affect Result Diagram: 10/30/1656 10/30/1656 Results 24 hrs Laboratory Tests Test 10/30/16 09:56 White Blood Count 14.910^3/ul Red Blood Count 3.6210^6/ul Hemoglobin 10.3g/dl Hematocrit 34.1% Mean Corpuscular Volume 94.2fl Mean Corpuscular Hemoglobin 28.5pg Mean Corpuscular Hemoglobin Concent 30.2g/dl Red Cell Distribution Width 18.8% Platelet Count 54151^3/UL Mean Platelet Volume 9.1fl Neutrophils % 85.6% Lymphocytes % 4.1% Monocytes % 9.1% Eosinophils % 0.5% Basophils % 0.1% Nucleated Red Blood Cells % 0.0/100WBC Neutrophils # 12.710^3/ul Lymphocytes # 0.610^3/ul Monocytes # 1.410^3/ul Eosinophils # 0.110^3/ul Basophils # 0.010^3/ul Nucleated Red Blood Cells # 0.010^3/ul Platelet Estimate PLT APPEAR INCREASED Prothrombin Time 13.9Sec Prothrombin Time Ratio 1.1 INR International Normalized Ratio 1.07 Activated Partial Thromboplast Time 37.9Sec Sodium Level 141mmol/L Potassium Level 3.8mmol/L Chloride Level 97mmol/L Carbon Dioxide Level 31mmol/L Anion Gap 17 Blood Urea Nitrogen 12mg/dl Creatinine 0.57mg/dl Glucose Level 107mg/dl Calcium Level 9.2mg/dl Total Bilirubin 0.0mg/dl Direct Bilirubin 0.00mg/dl Indirect Bilirubin 0.0mg/dl Aspartate Amino Transf (AST/SGOT) 65IU/L Alanine Aminotransferase (ALT/SGPT) 25IU/L Alkaline Phosphatase 566IU/L Total Protein 7.8g/dl Albumin 3.3g/dl Globulin 4.50g/dl Albumin/Globulin Ratio 0.73 Current Medications Medications (Trade) Dose Ordered Sig/Lexy Route PRN Reason Start Time Stop Time Status Last Admin Dose Admin Hydromorphone HCl (Dilaudid) 1 mg ONCE STAT IV 10/30/16 10:52 10/30/16 10:53 DC 10/30/16 11:07 Lidocaine (Xylocaine 1% (Mpf)) 5 ml STK-MED ONCE .ROUTE 10/30/16 12:40 10/30/16 12:41 DC 10/30/16 12:42 Procedures/MDM CBC: Leukocytosis, thrombocytosis, anemia CMP: No evidence of electrolyte abnormality, renal failure, hypoglycemia, liver failure. Alk phos elevated Coags within normal limits Ultrasound guided paracentesis done by radiology, serous fluid drained MDM Patient presented with ascites related to his colon cancer. Vitals were notable for mild tachycardia, likely secondary to his pain and shortness of breath. Labs were done and showed multiple abnormalities. However I have a low suspicion for SBP at this time. I do not suspect severe sepsis or septic shock. I suspect his shortness of breath is secondary to his ascites. Ultrasound-guided paracentesis was done by the radiology department. The patient felt much better after this procedure. Repeat abdominal exam was benign other than the abdominal mass noted earlier. I believe the patient is stable for discharge at this time. Return precautions were given. He will follow-up with his regular doctor. Departure Diagnosis: Primary Impression: Ascites Ascites type: other type Qualified Code: R18.8 - Other ascites Additional Impressions: Leukocytosis, unspecified Thrombocytosis History of colon cancer Condition: Stable Patient Instructions: Paracentesis Referrals: ALTA KAN (PCP) HERNÁN PRESTON MD Oct 30, 2016 13:51
== END 2016-10-30 14:12 | disposition home or self-care (01) ==
LOC: E/R 08:53
DX: R18.8 Other ascites (principal); D72.829 Elevated white blood cell count, unspecified; D47.3 Essential (hemorrhagic) thrombocythemia; Z85.038 Personal history of other malignant neoplasm of large intestine
CPT/HCPCS: 36415; 80053; 85025; 85610; 85730; 96374; 99285; J1170

== ENCOUNTER 2016-11-04 08:07 | Emergency (ER) | payer OTHER ==
[~2016-11-04] VITALS: Wt 109.1 kg
[2016-11-04] MEDS ORDERED: OXYCODONE/ACETAMINOPHEN (5/325) TAB PO ONE (09:00)
[2016-11-04] MEDS ORDERED: LIDOCAINE 1% (MPF) 5 ML VIAL ONE (10:08)
[2016-11-04 10:15] VITALS: BP 124/93; PULSE 88; RESP 20; TEMP 98.3
--- NOTE | 2016-11-04 10:28 | ERD ---
ER Documentation Chief Complaint Date/Time DATE: 11/04/16 TIME: 10:27 Chief Complaint pericentesis HPI 61-year-old man with a history of stage IV metastatic colon cancer here for paracentesis. He has a recent history of recurrent ascites and is requesting paracentesis, he states he has an appointment with his heme oncologist scheduled for next week and has had recent normal blood work.. He denies blood per rectum or melena, no fevers or chills, no chest pain or shortness of breath. Patient has not undergone surgical debulking. He had similar symptomatology a couple of weeks ago and received paracentesis and felt better. ROS All systems reviewed and are negative except as per history of present illness. Medications Home Meds Active Scripts Hydrocodone/Acetaminophen ([place] 10-325 Tablet) 1 Each Tablet, 1 TAB PO Q6H Y for PAIN, #20 TAB Prov:TARYNOLGA QUINONEZ 09/14/16 Allergies Allergies: Coded Allergies: No Known Allergy (Unverified , 10/06/16) PMhx/Soc Metastatic colon cancer, cirrhosis, ascites History of Surgery: No Anesthesia Reaction: No Hx Neurological Disorder: No Hx Respiratory Disorders: Yes (SOB) Hx Cardiac Disorders: No Hx Psychiatric Problems: No Hx Miscellaneous Medical Probl: Yes (Ascites) Hx Alcohol Use: No Hx Substance Use: No Hx Tobacco Use: No Smoking Status: Never smoker FmHx Family History: No diabetes Physical Exam Vitals Vital Signs Date Time Temp Pulse Resp B/P Pulse Ox O2 Delivery O2 Flow Rate FiO2 11/04/16 08:30 Nasal Cannula 2.0 11/04/16 08:10 97.4 92 20 111/69 97 Physical Exam GENERAL: Well-developed, well-nourished, well-hydrated, in no apparent distress , looks nontoxic in appearance HEENT: Moist mucous membranes, pink conjunctiva, no cervical spine tenderness or step-off deformities, no goiter, no jaundice or icterus, extraocular movements intact without pain. No submandibular induration, and no pharyngeal erythema NEURO: Alert and oriented 3, cranial nerves II through XII intact bilaterally, pupils equal round reactive to light, no focal deficits or facial asymmetry, sensation intact distally Strength 5/5 in upper and lower extremities bilaterally CARDIAC: Regular rate and rhythm, no murmurs rubs or gallops LUNGS: Clear bilaterally no wheezing crackles or stridor ABDOMEN: Protuberant distended abdomen with a very large minimally tender mass taking up most of the left and right side of the abdomen consistent with colon cancer, no rigidity, evidence of ascites SKIN: Warm and dry to touch, no abrasions, contusions, or hematomas, no lacerations, no ecchymosis, no target lesions, and without ulcers EXTREMITIES: No clubbing cyanosis or edema, calves are bilaterally symmetrical, no Homans sign, no popliteal cord sign. Distal pulses equal and bilateral PSYCH: Normal affect without agitation or irritability Results 24 hrs Current Medications Medications (Trade) Dose Ordered Sig/Lexy Route PRN Reason Start Time Stop Time Status Last Admin Dose Admin Oxycodone/ Acetaminophen (Percocet (5/ 325)) 1 tab ONCE ONCE PO 11/04/16 09:00 11/04/16 09:02 DC 11/04/16 09:09 Lidocaine (Xylocaine 1% (Mpf)) 5 ml STK-MED ONCE .ROUTE 11/04/16 10:08 11/04/16 10:09 DC 11/04/16 10:10 Procedures/MDM I administered Percocet 1 tablet p.o. to control back pain. I initially ordered blood work although patient states he has had recent blood work which was unremarkable and he is scheduled to see his oncologist and would prefer no blood was drawn today. Ultrasound-guided paracentesis was done by radiology department, over 3 L of ascitic fluid was removed. Patient's vital signs are normal, pain is been controlled, he states he feels better and would like to go home. I reviewed the patient's recent lab results, imaging studies, and workups. Patient feels much better at this time, and vital signs are normal, symptoms have improved. I did give strict instructions to return to the ED if symptoms continue or worsen, patient will otherwise follow-up with primary care physician. Patient understood instructions and agreed to plan. Disclaimer: Inadvertent spelling and grammatical errors are likely due to EHR/ dictation software use and do not reflect on the overall quality of patient care. Also, please note that the electronic time recorded on this note does not necessarily reflect the actual time of the patient encounter. 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
--- NOTE | 2016-11-04 11:05 | RADRPT ---
PROCEDURE: Ultrasound guided paracentesis. CLINICAL INDICATION: Ascites and shortness of breath. COMPARISON: 10/30/2016. TECHNIQUE: The risks, benefits, and alternatives were explained to the patient and/or the patient's family, inc luding but not limited to bleeding, infection, pain, visceral or vascular damage, shock, and . The patient and/or the patient's family understood the risks and the alternatives and wished to pro ceed with the procedure. Informed written consent was obtained. A procedural time out was performed . The patient's name, date of , and procedure to be performed were verified. Utilizing ultrasound guidance, optimal location for entry to the peritoneal cavity was ascertained. The overlying skin was prepped and draped in the usual sterile fashion. Approximately 10 ml of 1% Xylocaine was injected locally for pain control. Using ultrasound guidance, an 8 [place]ian catheter wa s introduced into the peritoneal cavity in the right lower quadrant without difficulty. FINDINGS: Initial images demonstrate ascites. Approximately 3.35 liters of serous fluid was aspirated and sen t for laboratory analysis. The patient tolerated the procedure well without complication. IMPRESSION: 1. Successful ultrasound-guided paracentesis. RPTAT: QQ .Jimmie Phan MD, Date Time Electronically viewed and signed by .Jimmie Phan MD, on 11/04/2016 11:05 .R/
== END 2016-11-04 10:50 | disposition home or self-care (01) ==
LOC: E/R 08:07
DX: C22.0 Liver cell carcinoma (principal); R18.0 Malignant ascites; C79.51 Secondary malignant neoplasm of bone; R40.2142 Coma scale, eyes open, spontaneous, at arrival to emergency department; R40.2252 Coma scale, best verbal response, oriented, at arrival to emergency department; R40.2362 Coma scale, best motor response, obeys commands, at arrival to emergency department

== ENCOUNTER 2016-11-10 07:42 | Emergency (ER) | payer OTHER ==
[~2016-11-10] VITALS: Ht 188 cm; Wt 109.0 kg
[2016-11-10 07:44] VITALS: Ht 188 cm; Wt 109.0 kg
[2016-11-10] MEDS ORDERED: CEPH-443 PO (08:20)
[2016-11-10] MEDS ORDERED: SULF1TAB31 PO (08:20)
[2016-11-10 08:23] VITALS: BP 114/87; PULSE 92; RESP 11; TEMP 98.1
[2016-11-10] MEDS ORDERED: TRIMETHOPRIM/SULFAMETHOX (DS) TAB PO ONE (08:30)
[2016-11-10] MEDS ORDERED: CEPHALEXIN 500 MG CAP PO ONE (08:30)
[2016-11-10] MEDS ORDERED: MORP15TA92 PO (09:43)
--- NOTE | 2016-11-10 10:00 | ERD ---
ER Documentation Chief Complaint Date/Time DATE: 11/10/16 TIME: 09:58 Chief Complaint here for paracentesis HPI Patient is a 61-year-old male with colon cancer who presents for a paracentesis. His last paracentesis was 6 days ago. He has had abdominal distention and pain. He denies fevers. He does have a sore on the sacral area which the human resource consultant wants me to look at. The patient's primary doctor is Dr. Jimmie Vernon. Upon review of old medical records the patient does have visits for various complaints. ROS All systems reviewed and are negative except as per history of present illness. Medications Home Meds Active Scripts Sulfamethoxazole/Trimethoprim* (Bactrim Ds* Tablet) 1 Each Tablet, 1 TAB PO BID , #14 TAB Prov:DI KAISER MD 11/10/16 Cephalexin* (Keflex*) 500 Mg Capsule, 500 MG PO QID for 7 Days, CAP Prov:DI KAISER MD 11/10/16 Hydrocodone/Acetaminophen ([place] 10-325 Tablet) 1 Each Tablet, 1 TAB PO Q6H Y for PAIN, #20 TAB Prov:OLGA FREGOSO 09/14/16 Reported Medications Morphine Sulfate* (Ms Contin*) 15 Mg Tablet.sa, 15 MG PO Q12, TAB 11/10/16 Allergies Allergies: Coded Allergies: No Known Allergy (Unverified , 11/10/16) PMhx/Soc History of Surgery: No Anesthesia Reaction: No Hx Neurological Disorder: No Hx Respiratory Disorders: Yes (SOB) Hx Cardiac Disorders: No Hx Psychiatric Problems: No Hx Miscellaneous Medical Probl: Yes (Ascites, STAGE 4 METASTATIC COLON CA) Hx Alcohol Use: No Hx Substance Use: No Hx Tobacco Use: No Smoking Status: Never smoker FmHx Family History: diabetes Physical Exam Vitals Vital Signs Date Time Temp Pulse Resp B/P Pulse Ox O2 Delivery O2 Flow Rate FiO2 11/10/16 08:23 98.1 92 11 114/87 91 Room Air 11/10/16 07:44 98.5 89 18 111/68 97 Physical Exam Const: Moderate distress Head: Atraumatic Eyes: Normal Conjunctiva ENT: Normal External Ears, Nose and Mouth. Neck: Full range of motion..~ No meningismus. Resp: Clear to auscultation bilaterally Cardio: Regular rate and rhythm, no murmurs Abd: Distended abdomen with palpable masses within the abdomen, distention Skin: Sacral decubitus ulcer with surrounding erythema Back: No midline or flank tenderness Ext: No cyanosis, or edema Neur: Awake and alert Psych: Normal Mood and Affect Results 24 hrs Current Medications Medications (Trade) Dose Ordered Sig/Lexy Route PRN Reason Start Time Stop Time Status Last Admin Dose Admin Cephalexin (Keflex) 500 mg ONCE ONCE PO 11/10/16 08:30 11/10/16 08:31 DC Trimethoprim/ Sulfamethoxazole (Bactrim (Ds)) 1 tab ONCE ONCE PO 11/10/16 08:30 11/10/16 08:31 DC Procedures/MDM Ultrasound-guided paracentesis performed by radiology. Patient is a 61-year-old male who presents with ascites. At this point I doubt spontaneous bacterial peritonitis. The patient had a therapeutic paracentesis performed by radiology. He also has a sacral decubitus ulcer. The patient will be given Bactrim and Keflex as an outpatient and the wound care nurses were evaluated in the emergency department prior to discharge. He will likely need continued wound care for this over the next few weeks. At this point I do not believe the patient requires admission to the hospital and I believe outpatient management is appropriate. He has a poor prognosis given his end- stage metastatic colon cancer. Departure Diagnosis: Primary Impression: Sacral decubitus ulcer Pressure ulcer stage: unspecified pressure ulcer stage Qualified Code: L89.159 - Decubitus ulcer of sacral region, unspecified ulcer stage Additional Impression: Ascites Ascites type: other type Qualified Code: R18.8 - Other ascites Condition: Fair Patient Instructions: Ascites, Decubitus Ulcer Additional Instructions: Call your primary care doctor TOMORROW for an appointment during the next 1-2 days.See the doctor sooner or return here if your condition worsens before your appointment time. DI KAISER MD Nov 10, 2016 10:00
[2016-11-10] MEDS ORDERED: SAN30GM TOP (10:10)
--- NOTE | 2016-11-10 10:13 | RADRPT ---
PROCEDURE: Ultrasound guided paracentesis. CLINICAL INDICATION: Ascites and shortness of breath. COMPARISON: 11/04/2016. TECHNIQUE: The risks, benefits, and alternatives were explained to the patient and/or the patient's family, inc luding but not limited to bleeding, infection, pain, visceral or vascular damage, shock, and . The patient and/or the patient's family understood the risks and the alternatives and wished to pro ceed with the procedure. Informed written consent was obtained. A procedural time out was performed . The patient's name, date of , and procedure to be performed were verified. Utilizing ultrasound guidance, optimal location for entry to the peritoneal cavity was ascertained. The overlying skin was prepped and draped in the usual sterile fashion. Approximately 10 ml of 1% Xylocaine was injected locally for pain control. Using ultrasound guidance, an 8 Georgian catheter wa s introduced into the peritoneal cavity in the right lower quadrant without difficulty. FINDINGS: Initial images demonstrate ascites. Approximately 3.75 liters of serous fluid was aspirated and dis carded. The patient tolerated the procedure well without complication. IMPRESSION: 1. Successful ultrasound-guided paracentesis. RPTAT: QQ .Jimmie Phan MD, Date Time Electronically viewed and signed by .Jimmie Phan MD, on 11/10/2016 10:13 .R/
[2016-11-10] MEDS ORDERED: LIDOCAINE 1% (MPF) 5 ML VIAL ONE (18:03)
== END 2016-11-10 11:23 | disposition home or self-care (01) ==
LOC: E/R 07:42
DX: L89.159 Pressure ulcer of sacral region, unspecified stage (principal); R18.8 Other ascites; Z85.038 Personal history of other malignant neoplasm of large intestine

== ENCOUNTER 2016-11-16 09:47 | Emergency (ER) | payer OTHER ==
[~2016-11-16] VITALS: Ht 182.9 cm; Wt 100.0 kg
[~2016-11-16 09:47] MED LIST changes: +CEPH-443 PO; +MORP15TA92 PO; +SAN30GM TOP; +SULF1TAB31 PO
[2016-11-16 09:53] VITALS: Ht 182.9 cm; Wt 100.0 kg
--- NOTE | 2016-11-16 12:06 | ERD ---
ER Documentation Chief Complaint Date/Time DATE: 11/16/16 TIME: 12:06 Chief Complaint HERE FOR PARACENTHESIS HPI 61-year-old male with a history of metastatic colon cancer and recurrent ascites presents the ED complaining of several day history of worsening abdominal distention for paracentesis. Denies shortness of breath or cough. He has been accepted into hospice care. Denies significant worsening pain, fevers or chills. ROS All systems reviewed and are negative except as per history of present illness. Medications Home Meds Active Scripts Collagenase* (Santyl*) 30 Gm Oint..gm., 1 APPLIC TOP DAILY, #1 TUB Prov:DI KAISER MD 11/10/16 Sulfamethoxazole/Trimethoprim* (Bactrim Ds* Tablet) 1 Each Tablet, 1 TAB PO BID , #14 TAB Prov:DI KAISER MD 11/10/16 Cephalexin* (Keflex*) 500 Mg Capsule, 500 MG PO QID for 7 Days, CAP Prov:DI KAISER MD 11/10/16 Hydrocodone/Acetaminophen ([place] 10-325 Tablet) 1 Each Tablet, 1 TAB PO Q6H Y for PAIN, #20 TAB Prov:OLGA FREGOSO 09/14/16 Reported Medications Morphine Sulfate* (Ms Contin*) 15 Mg Tablet.sa, 15 MG PO Q12, TAB 11/10/16 Allergies Allergies: Coded Allergies: No Known Allergy (Unverified , 11/10/16) PMhx/Soc Reviewed in chart. As per HPI. History of Surgery: No Anesthesia Reaction: No Hx Neurological Disorder: No Hx Respiratory Disorders: Yes (SOB) Hx Cardiac Disorders: No Hx Psychiatric Problems: No Hx Miscellaneous Medical Probl: Yes (Ascites, STAGE 4 METASTATIC COLON CA) Hx Alcohol Use: No Hx Substance Use: No Hx Tobacco Use: No FmHx Reviewed in chart. As per HPI. Physical Exam Vitals Vital Signs Date Time Temp Pulse Resp B/P Pulse Ox O2 Delivery O2 Flow Rate FiO2 11/16/16 15:21 97.6 81 16 110/64 96 11/16/16 09:53 98.1 84 18 107/63 93 Physical Exam Const: Alert, chronically ill-appearing Head: Atraumatic Eyes: Normal Conjunctiva ENT: Normal External Ears, Nose and Mouth. Neck: Full range of motion. Resp: Decreased at the bases but otherwise Cardio: Regular rate and rhythm, no murmurs Abd: Soft, distended, tense with large palpable masses Skin: No petechiae or rashes Back: No midline or flank tenderness Ext: No cyanosis, or edema Neur: Awake and alert Psych: Normal Mood and Affect Result Diagram: 11/16/16 1225 11/16/16 1225 Results 24 hrs Laboratory Tests Test 11/16/16 12:25 White Blood Count 14.810^3/ul Red Blood Count 3.5610^6/ul Hemoglobin 10.1g/dl Hematocrit 33.4% Mean Corpuscular Volume 93.8fl Mean Corpuscular Hemoglobin 28.4pg Mean Corpuscular Hemoglobin Concent 30.2g/dl Red Cell Distribution Width 18.6% Platelet Count 98113^3/UL Mean Platelet Volume 9.3fl Neutrophils % 81.8% Lymphocytes % 6.5% Monocytes % 10.2% Eosinophils % 0.7% Basophils % 0.1% Nucleated Red Blood Cells % 0.0/100WBC Neutrophils # 12.110^3/ul Lymphocytes # 1.010^3/ul Monocytes # 1.510^3/ul Eosinophils # 0.110^3/ul Basophils # 0.010^3/ul Nucleated Red Blood Cells # 0.010^3/ul Prothrombin Time 13.4Sec Prothrombin Time Ratio 1.0 INR International Normalized Ratio 1.02 Activated Partial Thromboplast Time 36.6Sec Sodium Level 141mmol/L Potassium Level 4.9mmol/L Chloride Level 98mmol/L Carbon Dioxide Level 34mmol/L Anion Gap 14 Blood Urea Nitrogen 21mg/dl Creatinine 0.58mg/dl Glucose Level 91mg/dl Calcium Level 8.6mg/dl Current Medications Medications (Trade) Dose Ordered Sig/Lexy Route PRN Reason Start Time Stop Time Status Last Admin Dose Admin Lidocaine (Xylocaine 1% (Mpf)) 5 ml STK-MED ONCE .ROUTE 11/16/16 14:56 11/16/16 14:57 DC 11/16/16 14:57 Procedures/MDM DOCUMENTS REVIEWED: ED nurse, prior ED, prior records MEDICAL DECISION MAKIN-year-old male with a history of metastatic colon cancer and recurrent ascites presents the ED complaining of several day history of worsening abdominal distention for paracentesis. Ultrasound-guided paracentesis performed by interventional radiology. Symptomatically improved. No hypotension. Stable for discharge with precautionary instructions and outpatient follow-up as counseled. Pending hospice. Counseled patient and family regarding diagnostic workup, diagnosis and need for followup. Understands to return to ED if symptoms recur, worsen or any other concerns. Departure Diagnosis: Primary Impression: Malignant neoplasm metastatic to colon Additional Impression: Ascites Ascites type: malignant Qualified Code: R18.0 - Malignant ascites Condition: Stable RAJINDER EPSTEIN MD Nov 16, 2016 12:06
[2016-11-16 12:36] LABS: ABNORMAL IP MESSAGE 1; BASOPHILS % 0.1 % (0.0-2.0); EOSINOPHILS # 0.1 10^3/ul (0.0-0.5); EOSINOPHILS % 0.7 % (0.0-7.0); HEMATOCRIT 33.4 % (42.0-52.0); HEMOGLOBIN 10.1 g/dl (14.0-18.0); LYMPHOCYTES % 6.5 % (15.0-51.0); MEAN CORPUSCULAR HEMOGLOBIN 28.4 pg (29.0-33.0); MEAN CORPUSCULAR HGB CONC 30.2 g/dl (32.0-37.0); MEAN CORPUSCULAR VOLUME 93.8 fl (82.0-101.0); MEAN PLATELET VOLUME 9.3 fl (7.4-10.4); MONOCYTE # 1.5 10^3/ul (0.3-0.9); MONOCYTES % 10.2 % (0.0-11.0); NEUTROPHIL # 12.1 10^3/ul (1.6-7.5); NEUTROPHILS % 81.8 % (39.0-77.0); PLATELET COUNT 822 10^3/UL (140-415); POSITIVE DIFF @See below; RED BLOOD COUNT 3.56 10^6/ul (4.70-6.10); RED CELL DISTRIBUTION WIDTH 18.6 % (11.5-14.5); WHITE BLOOD COUNT 14.8 10^3/ul (4.8-10.8)
[2016-11-16 12:57] LABS: INR 1.02; PROTIME 13.4 Sec (12.2-14.2)
[2016-11-16 12:58] LABS: PARTIAL THROMBOPLASTIN TIME 36.6 Sec (25.0-35.0)
[2016-11-16 13:02] LABS: CALCIUM 8.6 mg/dl (8.4-10.2); CREATININE 0.58 mg/dl (0.61-1.24); POTASSIUM 4.9 mmol/L (3.5-5.1)
[2016-11-16] MEDS ORDERED: LIDOCAINE 1% (MPF) 5 ML VIAL ONE (14:56)
[2016-11-16 15:21] VITALS: BP 110/64; PULSE 81; RESP 16; TEMP 97.6
--- NOTE | 2016-11-16 17:11 | RADRPT ---
PROCEDURE: Ultrasound guided paracentesis. CLINICAL INDICATION: Ascites and shortness of breath. COMPARISON: 11/10/2016. TECHNIQUE: The risks, benefits, and alternatives were explained to the patient and/or the patient's family, inc luding but not limited to bleeding, infection, pain, visceral or vascular damage, shock, and . The patient and/or the patient's family understood the risks and the alternatives and wished to pro ceed with the procedure. Informed written consent was obtained. A procedural time out was performed . The patient's name, date of , and procedure to be performed were verified. Utilizing ultrasound guidance, optimal location for entry to the peritoneal cavity was ascertained. The overlying skin was prepped and draped in the usual sterile fashion. Approximately 10 ml of 1% Xylocaine was injected locally for pain control. Using ultrasound guidance, an 8 [place] catheter wa s introduced into the peritoneal cavity in the right lower quadrant without difficulty. FINDINGS: Initial images demonstrate ascites. Approximately 2.8 liters of serous fluid was aspirated and disc arded. The patient tolerated the procedure well without complication. IMPRESSION: 1. Successful ultrasound-guided paracentesis. RPTAT: QQ .Jimmie Phan MD, Date Time Electronically viewed and signed by .Jimmie Phan MD, on 11/16/2016 17:11 .R/
== END 2016-11-16 15:22 | disposition home or self-care (01) ==
LOC: E/R 09:47
DX: C18.9 Malignant neoplasm of colon, unspecified (principal); R18.0 Malignant ascites; R06.02 Shortness of breath
CPT/HCPCS: 80048; 85025; 85610; 85730

== ENCOUNTER 2016-11-19 10:44 | Emergency (ER) | payer OTHER ==
[~2016-11-19] VITALS: Wt 106.1 kg
[2016-11-19] MEDS ORDERED: IBUPROFEN 800 MG TAB PO ONE (12:00)
--- NOTE | 2016-11-19 14:06 | ERD ---
ER Documentation Chief Complaint Date/Time DATE: 11/19/16 TIME: 14:05 Chief Complaint AP AND DISTENTION FOR THE PAST FEW DAYS, NEEDS PARACENTHESIS HPI This 61-year-old male presents for drainage of his abdominal fluid. He has known metastatic cancer that is causing his abdominal ascites. He states that he has no pain currently. He is simply here for fluid drainage. Denies any fevers or chills. ROS All systems reviewed and are negative except as per history of present illness. Medications Home Meds Active Scripts Collagenase* (Santyl*) 30 Gm Oint..gm., 1 APPLIC TOP DAILY, #1 TUB Prov:DI KAISER MD 11/10/16 Sulfamethoxazole/Trimethoprim* (Bactrim Ds* Tablet) 1 Each Tablet, 1 TAB PO BID , #14 TAB Prov:DI KAISER MD 11/10/16 Cephalexin* (Keflex*) 500 Mg Capsule, 500 MG PO QID for 7 Days, CAP Prov:DI KAISER MD 11/10/16 Hydrocodone/Acetaminophen ([place] 10-325 Tablet) 1 Each Tablet, 1 TAB PO Q6H Y for PAIN, #20 TAB Prov:OLGA FREGOSO 09/14/16 Reported Medications Morphine Sulfate* (Ms Contin*) 15 Mg Tablet.sa, 15 MG PO Q12, TAB 11/10/16 Allergies Allergies: Coded Allergies: No Known Allergy (Unverified , 11/10/16) PMhx/Soc History of Surgery: No Anesthesia Reaction: No Hx Neurological Disorder: No Hx Respiratory Disorders: Yes (SOB) Hx Cardiac Disorders: No Hx Psychiatric Problems: No Hx Miscellaneous Medical Probl: Yes (Ascites, STAGE 4 METASTATIC COLON CA) Hx Alcohol Use: No Hx Substance Use: No Hx Tobacco Use: No Smoking Status: Never smoker Physical Exam Vitals Vital Signs Date Time Temp Pulse Resp B/P Pulse Ox O2 Delivery O2 Flow Rate FiO2 11/19/16 10:49 97.7 98 22 120/77 98 Physical Exam Const: [] No distress Head: Atraumatic Eyes: Normal Conjunctiva ENT: Normal External Ears, Nose and Mouth. Neck: Full range of motion..~ No meningismus. Resp: Clear to auscultation bilaterally Cardio: Regular rate and rhythm, no murmurs Abd: Soft, diffuse abdominal distention with positive fluid wave, large abdominal mass in upper abdomen Skin: No petechiae or rashes Back: No midline or flank tenderness Ext: No cyanosis, or edema Neur: Awake and alert and oriented 3, no focal deficits Psych: Normal Mood and Affect Results 24 hrs Current Medications Medications (Trade) Dose Ordered Sig/Lexy Route PRN Reason Start Time Stop Time Status Last Admin Dose Admin Ibuprofen (Motrin) 800 mg ONCE ONCE PO 11/19/16 12:00 11/19/16 12:01 DC 11/19/16 12:12 Procedures/MDM Patient presented for paracentesis. This was performed the ER. He states that he had no pain and not require anything else. Labs were drawn 3 days ago and radiology stated they could use these labs. Patient himself does not need any further workup and is currently on hospice. Discharge with primary care follow- up in 2-3 days Departure Diagnosis: Primary Impression: Ascites Condition: Stable Patient Instructions: Ascites Additional Instructions: Call your primary care doctor TOMORROW for an appointment during the next 2-3 days.See the doctor sooner or return here if your condition worsens before your appointment time. MICHAEL ESCALONA DO Nov 19, 2016 14:06
[2016-11-19] MEDS ORDERED: LIDOCAINE 1% (MPF) 5 ML VIAL ONE (14:17)
[2016-11-19 14:23] VITALS: BP 114/71; PULSE 83; RESP 20; TEMP 98.3
--- NOTE | 2016-11-19 15:13 | RADRPT ---
PROCEDURE: Ultrasound guided paracentesis. CLINICAL INDICATION: Ascites and shortness of breath. COMPARISON: 11/16/2016 TECHNIQUE: The risks, benefits, and alternatives were explained to the patient and/or the patient's family, inc luding but not limited to bleeding, infection, pain, visceral or vascular damage, shock, and . The patient and/or the patient's family understood the risks and the alternatives and wished to pro ceed with the procedure. Informed written consent was obtained. A procedural time out was performed . The patient's name, date of , and procedure to be performed were verified. Utilizing ultrasound guidance, optimal location for entry to the peritoneal cavity was ascertained. The overlying skin was prepped and draped in the usual sterile fashion. Approximately 10 ml of 1% Xylocaine was injected locally for pain control. Using ultrasound guidance, an 8 [place] catheter wa s introduced into the peritoneal cavity in the right lower quadrant without difficulty. FINDINGS: Initial images demonstrate ascites. Approximately 0.400 liters of serous fluid was aspirated and di scarded. The patient tolerated the procedure well without complication. IMPRESSION: 1. Successful ultrasound-guided paracentesis. RPTAT: QQ .Jimmie Phan MD, Date Time Electronically viewed and signed by .Jimmie Phan MD, MD on 11/19/2016 15:12 .R/
== END 2016-11-19 15:35 | disposition home or self-care (01) ==
LOC: E/R 10:44
DX: R18.8 Other ascites (principal); Z85.038 Personal history of other malignant neoplasm of large intestine